=== PATIENT | female | born 1985 | race Caucasian/White ===

== ENCOUNTER 2023-03-29 05:01 | Emergency (ER) | payer BC, SELFPAY ==
--- NOTE | 2023-03-29 05:00 | DI.CT_ITS ---
Exam(s) CT ABDOMEN PELVIS WO EXAM: CT ABDOMEN PELVIS WO CLINICAL HISTORY: left flank pain, r/o stone. TECHNIQUE: Imaging Protocol: Axial computed tomography images with coronal and sagittal reformatted images were created and reviewed. COMPARISON: No exams were available for comparison FINDINGS: ABDOMEN: Lung Bases: Normal where visualized. Liver: Normal density. No measurable mass. Gallbladder and biliary tract: No radiodense calculus or biliary ductal dilation. Pancreas: Normal density, no abnormal calcifications or inflammatory process. Spleen: Normal. Kidneys: Normal size, contour and axis.There is a 4 mm stone at the ureteral vesicular junction causi ng mild hydronephrosis. No masses seen. Adrenal glands: No mass is seen. Lymph nodes: Within normal limits. Abdominal Aorta: Abdominal portion non-dilated. PELVIS: Bladder:Symmetric distention, no gross wall thickening. Bowel: No obstruction or bowel wall thickening. Appendix is unremarkable. Peritoneal cavity: No ascites, collection or mesenteric inflammatory response. No free air. Reproductive organs: Unremarkable as visualized. Bones: Within normal limits. Soft Tissues: Within normal limits. IMPRESSION: There is a 4 mm stone in the distal left ureter causing mild left hydronephrosis. RADIATION DOSE DELIVERED: Total DLP DATA REPOSITORY: All CT scans at this facility are submitted to the National Radiology Data Registry (NRDR) Dose Index Registry (DIR) with the [employer] (ACR). RADIATION OPTIMIZATION: All CT scans at this facility use at least one of these dose optimization te chniques: automated exposure control; mA and/or kV adjustment per patient size (includes targeted exa ms where dose is matched to clinical indication); or iterative reconstruction.
[2023-03-29 05:03] VITALS: PULSE 80; RESP 14; TEMP 36.9; O2SAT 98
[2023-03-29 05:07] VITALS: PULSE 78; RESP 12; O2SAT 99
--- NOTE | 2023-03-29 05:12 | W.ED.GENAD ---
Discharge Plan Disposition Patient Disposition: Home Discharge Details Clinical Impression: Kidney stone on left side ED Provider: Umesh Quinones Home Meds and New Rx's Prescriptions: New ketorolac 10 mg tablet 10 mg PO TID 5 Days Qty: 15 0RF tamsulosin [Flomax] 0.4 mg capsule 0.4 mg PO DAILY Qty: 10 0RF cephalexin 500 mg capsule 500 mg PO QID 7 Days Qty: 28 0RF Discharge Instructions Instructions: Kidney Stones (ED) Additional Instructions: At this time you have evidence of a kidney stone. Please use the urine strainer to collect the stone for further analysis. Please take Tylenol and Toradol as directed. Drink plenty of fluid. Please take the Flomax as prescribed. If you notice any worsening of your symptoms, or any new symptoms such as vomiting, diarrhea, fever, chills, shortness of breath, chest pain, numbness, weakness, or fainting , please return immediately to the emergency department for reevaluation. Please follow up with your primary care provider as soon as possible for reassessment and reevaluation. As always, it was a pleasure participating in your medical care today. We have placed a referral for you with a new primary care provider. They will contact you with the appointment time. Medical Decision Making 37-year-old female with a past medical history of previous kidney stones as well as urinary tract infections presents today for left flank pain. Patient states that about 45 minutes ago she woke up out of sleep with pain in her left flank which was notable. It radiates slightly anteriorly. She admits to associated urinary frequency. She denies any hematuria or burning. She denies any fever or chills. No vomiting or diarrhea. She states that this feels similar to her previous kidney stones and UTIs. She denies any chest pain or shortness of breath. She denies any vaginal discharge. No prior abdominal surgeries. No other complaints at this time. She has not taken any medications prior to arrival. She does not have an established PCP here at this time. Patient recently moved to the area 1 year ago from [place]. Exam demonstrates well-appearing female, vital signs stable. No abdominal or CVA tenderness. No the patient's history of kidney stones and UTIs, I do feel that imaging is indicated for further evaluation of potential stone. We will get a UA to check for infection, we will treat the patient's pain with Toradol. She does not want any other medications at this time. Will monitor closely and reassess. Differential also includes diverticulitis, less likely ovarian symptomatology. 6:58 AM Laboratory work-up demonstrates no white count bandemia or left shift. Normal renal function. Urinalysis shows large blood, trivial leuk esterase, greater than 50 RBCs, and within normal limits WBCs. No nitrites. CT scan on my review shows evidence of a distal kidney stone. Patient is feeling well. Pending CT scan read. Patient will be signed out to my colleague Dr. Garay for follow-up on CT imaging read. Otherwise patient appears well and is stable for discharge pending otherwise normal CT scan. 7:[address] scan shows evidence of a 4 mm stone. No fat stranding around the kidneys themselves. Symptoms inconsistent with pyelonephritis or significant infection. Out of an abundance of precaution we will start the patient on an antibiotic to prevent infection although there is no current evidence of significant UTI. I have extensively reviewed the treatment plan and discharge instructions with the patient. I have addressed all patient concerns at this time. The patient was made aware of what symptoms to monitor for that would warrant a return to the emergency department. Discussed the plan with the patient, they demonstrate verbal understanding and agreement with our assessment and plan at this time. The documentation in this chart was dictated using [employer] dictation software. Please excuse any dictation errors. FINDINGS: Liver: Normal. No mass. Gallbladder and bile ducts: Normal. No calcified stones. No ductal dilation. Pancreas: Normal. No ductal dilation. Spleen: Normal. No splenomegaly. Adrenal glands: Normal. No mass. Kidneys and ureters: There is a 4mm stone in the distal left ureter, with associated left-sided hydronephrosis and hydroureter. Stomach and bowel: Unremarkable. No obstruction. No mucosal thickening. Appendix: No evidence of appendicitis. Intraperitoneal space: See Lymph nodes finding. Vasculature: Unremarkable. No abdominal aortic aneurysm. Lymph nodes: Mild mesenteric fat stranding within the central abdomen, with prominent mesenteric lymph nodes. 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 Urinary bladder: Unremarkable as visualized. Reproductive: Unremarkable as visualized. Bones/joints: Unremarkable. No acute fracture. Soft tissues: Unremarkable IMPRESSION: There is a 4mm stone in the distal left ureter, with associated left-sided hydronephrosis and hydroureter. Thank you for allowing us to participate in the care of your patient. Dictated and Authenticated by: Higinio Purdy MD 03/29/2023 7:16 AM Eastern Time ([place] & [place] HPI General Date/Time Provider Initiated Documentation: 03/29/23 05:04. HPI Narrative: 37-year-old female with a past medical history of previous kidney stones as well as urinary tract infections presents today for left flank pain. Patient states that about 45 minutes ago she woke up out of sleep with pain in her left flank which was notable. It radiates slightly anteriorly. She admits to associated urinary frequency. She denies any hematuria or burning. She denies any fever or chills. No vomiting or diarrhea. She states that this feels similar to her previous kidney stones and UTIs. She denies any chest pain or shortness of breath. She denies any vaginal discharge. No prior abdominal surgeries. No other complaints at this time. She has not taken any medications prior to arrival. She does not have an established PCP here at this time. Patient recently moved to the area 1 year ago from [place]. Related Data Home Medications Medication Instructions Recorded Confirmed cephalexin 500 mg capsule 500 mg PO QID 7 days #28 caps 03/29/23 ketorolac 10 mg tablet 10 mg PO TID 5 days #15 tabs 03/29/23 tamsulosin 0.4 mg capsule (Flomax) 0.4 mg PO DAILY #10 caps 03/29/23 Previous Rx's Medication Instructions Recorded cephalexin 500 mg capsule 500 mg PO QID 7 days #28 caps 03/29/23 ketorolac 10 mg tablet 10 mg PO TID 5 days #15 tabs 03/29/23 tamsulosin 0.4 mg capsule (Flomax) 0.4 mg PO DAILY #10 caps 03/29/23 Allergies Allergy/AdvReac Type Severity Reaction Status Date / Time No Known Allergies Allergy Unverified 03/29/23 05:39 General Stated Complaint: FlankPain JASON: 3 Review of Systems All systems reviewed & are unremarkable except as noted in HPI and below PFSH All Active Problems (Updated 03/29/23 @ 07:00 by Umesh Quinones DO) Kidney stone on left side (Acute) Social History Smoking/Tobacco Use Status: Never Smoking risk assessment performed?: Yes Alcohol Intake: current Alcohol Intake frequency: a few times a month Drug use: Occasionally Substance use type: marijuana Do you feel safe at home: Yes Do you feel safe in your relationship?: Yes Exam Narrative Exam Narrative: 1.Const: Well-nourished, Well-developed, appearing stated age 2.Eyes: PERRL, no conjunctival injection, and symmetrical lids. 3.ENT: Atraumatic external nose and ears. Moist MM. Neck: Symmetric, trachea midline, No thyromegaly. 4.CVS: +S1/S2, No murmurs or gallops. Peripheral pulses 2+ and equal in all extremities. Brisk capillary refill in all extremities. 5.RESP: Unlabored respiratory effort. Clear to auscultation bilaterally. No wheezes rales or rhonchi 6.GI: Soft, Nontender/Nondistended, No hepatosplenomegaly. No guarding or rebound. No CVA tenderness. No pain or McBurney's point. Negative Rahman sign. 7.MSK: Normocephalic/Atraumatic, Extremities w/o deformity or ttp No cyanosis or clubbing, Normal movement of all extremities 8.Skin: Warm, Dry. No rashes or lesions. 9.Neuro: office support specialist II-XII grossly intact. Sensation grossly intact, no focal neurologic deficits. 10.Psych: (AAO) x3. Appropriate mood and affect Course Vital Signs Vital signs: Vital Signs Temperature 36.9 C 03/29/23 05:03 Pulse 80 03/29/23 05:03 Respiratory Rate 14 03/29/23 05:03 Pulse Oximetry 98 03/29/23 05:03 Temperature 36.9 C 03/29/23 05:03 Temperature Source Oral 03/29/23 05:03 Pulse 78 03/29/23 05:07 Respiratory Rate 12 03/29/23 05:07 Respiratory Effort Normal 03/29/23 05:07 Blood Pressure Position Sitting 03/29/23 05:03 Pulse Oximetry 99 03/29/23 05:07 Oxygen Delivery Method Room Air 03/29/23 05:07 Oxygen Flow Rate 0 03/29/23 05:03 Pain Level 4 03/29/23 05:07
[2023-03-29 05:23] LABS: Abs Immature Grans 0.01 10^3/uL (0.0-0.06); Absolute Basophil Count 0.06 10^3/uL (0.0-0.2); Absolute Eosinophil Count 0.23 10^3/uL (0.0-0.7); Absolute Monocyte Count 0.65 10^3/uL (0.1-0.8); Basophils % 0.8; HCT 40.3 % (36.0-46.0); HGB 13.5 g/dL (11.2-15.7); Immature Grans % 0.1; Lymphocytes % 39.7; MCH 29.3 pg (27.0-33.0); MCHC 33.5 % (32.0-36.0); MCV 88 fL (80-95); MPV 10.1 fL (8.0-11.0); Monocytes % 8.6; Neutrophils % 47.8; Platelet Count 347 10^3/uL (130-400); RDW 12.1 % (11.7-14.6); RDW-SD 38.7 fL; WBC 7.55 10^3/uL (4.4-10.8)
[2023-03-29 05:39] LABS: ALT 29 U/L (14-59); AST 17 U/L (15-37); Albumin 3.9 g/dL (3.4-5.0); Alkaline Phosphatase 98 U/L (46-116); Anion Gap 9.4 mmol/L (3-11); BUN 11 mg/dL (7-18); Bilirubin, Total 0.2 mg/dL (0.2-1.0); CO2 27.6 mmol/L (21.0-32.0); CREATININE 0.7 mg/dL (0.55-1.02); Calcium 8.7 mg/dL (8.5-10.1); Chloride 101 mmol/L (98-107); Estimated GFR 112.75 (mL/min/1.73m2); Glucose 99 mg/dL (74-106); Potassium 4.2 mmol/L (3.5-5.1); Sodium 138 mmol/L (136-145); Total Protein 7.9 g/dL (6.4-8.2)
[2023-03-29 05:42] LABS: Bilirubin Negative (Negative); Blood Large (Negative); Clarity Sl Cloudy (Clear); Glucose Negative (Negative); Ketones Negative (Negative); Leukocyte Esterase Trace (Negative); Nitrite Negative (Negative); Urobilinogen 0.2 mg/dL (Up to 0.2); pH 5.5 (5-8)
[2023-03-29 05:49] LABS: Bacteria Moderate HPF (Negative); Crystals Negative HPF (Negative); Epithelial Cells Moderate HPF (Negative); RBC >50 HPF (0-2)
[2023-03-29 05:50] LABS: C & S Indicated? No/Sq. Contamination; Mucus Trace (Negative)
[2023-03-29] MEDS: Ketorolac 15 MG/ML VIAL IVP (06:03)
[2023-03-29] MEDS: Tamsulosin 0.4 MG CAPCR PO (06:04)
[2023-03-29] MEDS: Normal Saline 1,000 ML 1000 ML IV (06:04)
--- NOTE | 2023-03-29 07:17 | DI.VRAD_ITS ---
PROCEDURE INFORMATION: Exam: CT Abdomen And Pelvis Without Contrast Exam date and time: 03/29/2023 5:56 AM Age: 37 years old Clinical indication: Abdominal pain; Patient HX: Left flank pain, R/O kidney stone TECHNIQUE: Imaging protocol: Computed tomography of the abdomen and pelvis without contrast. COMPARISON: No relevant prior studies available. FINDINGS: Liver: Normal. No mass. Gallbladder and bile ducts: Normal. No calcified stones. No ductal dilation. Pancreas: Normal. No ductal dilation. Spleen: Normal. No splenomegaly. Adrenal glands: Normal. No mass. Kidneys and ureters: There is a 4mm stone in the distal left ureter, with associated left-sided hydronephrosis and hydroureter. Stomach and bowel: Unremarkable. No obstruction. No mucosal thickening. Appendix: No evidence of appendicitis. Intraperitoneal space: See Lymph nodes finding. Vasculature: Unremarkable. No abdominal aortic aneurysm. Lymph nodes: Mild mesenteric fat stranding within the central abdomen, with prominent mesenteric lymph nodes. 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 Urinary bladder: Unremarkable as visualized. Reproductive: Unremarkable as visualized. Bones/joints: Unremarkable. No acute fracture. Soft tissues: Unremarkable. IMPRESSION: There is a 4mm stone in the distal left ureter, with associated left-sided hydronephrosis and hydroureter. Dictated and Authenticated by: Higinio Purdy MD. Ordering:OMAR Calvo MD
[2023-03-29] MEDS: Cephalexin 500 MG CAP, 4 CAPS/BTL PO (07:28)
[2023-03-29 07:32] VITALS: BP 124/76; PULSE 78; RESP 16; TEMP 36.8; O2SAT 98
== END 2023-03-29 07:41 | disposition home or self-care (01) ==
LOC: ER 09:29
PROVIDERS: Emergency Provider Student in an Organized Health Care Education/Training Program
DX: N13.2 Hydronephrosis with renal and ureteral calculous obstruction (principal)
CPT/HCPCS: 36415; 80053; 81025; 96361; 96374; 99284; 74176; 81003; 81015; 85025; J1885

== ENCOUNTER 2025-03-18 13:07 | Emergency (ER) | payer BC, SELFPAY ==
[2025-03-18 13:14] VITALS: BP 166/94; PULSE 73; RESP 15; TEMP 37.2; O2SAT 95
--- NOTE | 2025-03-18 13:15 | RT.EKG_ITS ---
APPROVED REPORT Exam: Resting ECG Reason for Exam: Lightheadedness Patient Location: E HR:63 bpm ECG Measurements Heart Rate 63 AXIS UT 166 P 38 QRSd 76 QRS 44 QT 395 T 47 QTc 406 Conclusion Sinus rhythm...normal P axis, V-rate 60- 99 ST elev, probable normal early repol pattern...ST elevation, age<55 Physician: no stemi
--- NOTE | 2025-03-18 13:36 | ED.GENADUL_ITS ---
Discharge Plan Disposition Patient Disposition: Home Condition: Stable Discharge Details Clinical Impression: Neck and shoulder pain Primary Care Provider: Unknown,Unknown ED Provider: Penny Allison Home Meds and New Rx's Prescriptions: No Action propranolol 10 mg tablet 10 mg PO DAILY PRN ibuprofen [Advil] 200 mg tablet 400 mg PO Q8H PRN Discharge Instructions Instructions: Neck Pain Exercises, Neck Pain ED Additional Instructions: At this time cardiac workup is negative. No evidence of pneumonia or abnormality on the chest x-ray. Follow up with primary care provider in 3-5 days. Return to ED sooner if any worsening or concerns. Please take Tylenol or Ibuprofen with food every 4-6 hours as needed for pain and swelling. Referrals: Primary Care Provider [Outside] - 5 days Referral Note: ER follow-up, call for an appointment HPI General Mode of arrival: ambulatory . Date/Time Provider Initiated Documentation: 03/18/25 13:21 . Limitations to Documentation: no limitations . Information obtained by: patient, RN notes reviewed and old records reviewed . HPI Narrative: 39-year-old female presents to the ER with a chief complaint of left-sided neck pain which radiates into her left shoulder she also reports episodes of feeling woozy and jaw pain while hiking over the last week. Prior to this she did have a headache with nausea lightheadedness. She was instructed by her PCP to present to the ER to rule out cardiac nature. Does have a past medical history of anxiety. She reports that she has a father who had a OR at the age of 60. She is a non-smoker denies any drugs or alcohol. Is not on any control at this time. Related Data Home Medications ?Medication ?Instructions ?Recorded ?Confirmed ibuprofen 200 mg tablet (Advil) 400 mg PO Q8H PRN 02/0203/18/25 propranolol 10 mg tablet 10 mg PO DAILY PRN 03/18/25 03/18/25 Allergies Allergy/AdvReac Type Severity Reaction Status Date / Time Iodinated Contrast Media Allergy Mild Other (See Verified 03/18/25 13:19 Comment) General Stated Complaint: Dizzy/Sync JASON: 3 Review of Systems All systems reviewed & are unremarkable except as noted in HPI and below Cardiovascular Cardiovascular: Reports as per HPI, Reports lightheadedness and Reports radiating jaw, neck or arm pain Exam Narrative Exam Narrative: Constitutional: Alert and oriented x3. Appears stated age. Normal body habitus. Head: Normocephalic, no trauma. Eyes: Pupils PERRL, Red reflex noted, EOM's intact. Eyelids symmetrical without lesions, discharge, or swelling. ENT: Bilateral TM's WNL, External ear normal to inspection, no mastoid TTP, swelling, or erythema, Nasal turbinates WNL, no nasal discharge. Normal dentition, Posterior pharynx WNL, no exudate. Chest: RRR, Normal S1, S2, distal pulses intact. Resp: Lungs clear to auscultation bilaterally, no wheezes, rales, or rhonchi. Abdomen: Soft, non-distended, Normoactive bowel sounds all 4 quads. Musculoskeletal: Normal gait, Moves all 4 extremities without difficulty. Skin: No suspicious rashes or lesions. Capillary refill less than 2 sec. Neurologic: Cranial nerves II-XII intact. Alert and oriented x 3. Motor: No deficits noted. Sensory: Intact bilaterally all 4 extremities. Hematologic/Lymphatic: No ecchymosis, no lymphadenopathy. Course Vital Signs Vital signs: Vital Signs Temperature 37.2 C 03/18/25 13:14 Pulse 73 03/18/25 13:14 Respiratory Rate 15 03/18/25 13:14 Blood Pressure 166/94 H 03/18/25 13:14 Pulse Oximetry 95 03/18/25 13:14 Temperature 37.2 C 03/18/25 13:14 Temperature Source Temporal Artery Scan 03/18/25 13:14 Pulse 73 03/18/25 13:14 Respiratory Rate 15 03/18/25 13:14 Blood Pressure 166/94 H 03/18/25 13:14 Blood Pressure Position Sitting 03/18/25 13:14 Pulse Oximetry 95 03/18/25 13:14 Oxygen Delivery Method Room Air 03/18/25 13:14 Oxygen Flow Rate 0 03/18/25 13:14 Pain Level 2 03/18/25 13:14 Medical Decision Making 39-year-old female presents to the ER with a chief complaint of left-sided neck pain which radiates into her left shoulder she also reports episodes of feeling woozy and jaw pain while hiking over the last week. Prior to this she did have a headache with nausea lightheadedness. She was instructed by her PCP to present to the ER to rule out cardiac nature. Does have a past medical history of anxiety. She reports that she has a father who had a OR at the age of 60. She is a non-smoker denies any drugs or alcohol. Is not on any control at this time. Cardiac workup ordered including CXR. Workup is within normal limits, no leukocytosis CMP largely within normal limits D-dimer within normal limits. Initial troponin less than 4. Chest x-ray shows no acute bony cardiopulmonary abnormality. Discussed workup results with patient verbalized understanding. This text was generated using [employer] system, please disregard any oddities of phrase or misspellings. Lab Data Lab results reviewed: Yes I reviewed the patient's lab results. Labs: Laboratory Tests Range/Units 03/18/25 03/18/25 03/18/25 13:56 14:35 16:35 WBC (4.4-10.8) 10^3/uL 7.49 RBC (3.93-5.22) 10^6/uL 4.65 Hgb (11.2-15.7) g/dL 13.7 Hct (36.0-46.0) % 40.4 MCV (80-95) fL 87 MCH (27.0-33.0) pg 29.5 MCHC (32.0-36.0) % 33.9 RDW (11.7-14.6) % 11.9 Plt Count (130-400) 10^3/uL 395 MPV (8.0-11.0) fL 10.4 Immature Gran % % 0.3 Neutrophils % % 62.9 Lymphocytes % % 26.4 Monocytes % % 7.6 Eosinophils % % 1.9 Basophils % % 0.9 Nucleated RBC % (0.0-0.3) % 0.0 Absolute Neutrophils (1.2-6.7) 10^3/uL 4.71 Absolute Lymphocytes (1.2-3.4) 10^3/uL 1.98 Absolute Monocytes (0.1-0.8) 10^3/uL 0.57 Absolute Eosinophils (0.0-0.7) 10^3/uL 0.14 Absolute Basophils (0.0-0.2) 10^3/uL 0.07 D-Dimer (<500) ng/mlFEU 338 Sodium (136-145) mmol/L 136 Potassium (3.5-5.1) mmol/L 4.2 Chloride (98-107) mmol/L 102 Carbon Dioxide (21.0-32.0) mmol/L 25.7 Anion Gap (3-11) mmol/L 8.3 BUN (7-18) mg/dL 9 Creatinine (0.55-1.02) mg/dL 0.8 Est GFR (CKD-EPI 2020) (mL/min/1.73m2) 94.87 Glucose (74-106) mg/dL 103 Calcium (8.5-10.1) mg/dL 8.5 Magnesium (1.8-2.4) mg/dL 2.0 Total Bilirubin (0.2-1.0) mg/dL 0.3 AST (15-37) U/L 13 L ALT (14-59) U/L 29 Alkaline Phosphatase (46-116) U/L 100 Troponin I (<or=51) ng/L < 4 Cancelled Cancelled Total Protein (6.4-8.2) g/dL 7.7 Albumin (3.4-5.0) g/dL 4.0 PFSH All Active Problems (Updated 03/18/25 @ 15:05 by Penny Allison NP) Neck and shoulder pain (Acute) Social History Smoking/Tobacco Use Status: Never Smoking risk assessment performed?: Yes Alcohol Intake: current Alcohol Intake frequency: a few times a month Drug use: Occasionally Substance use type: marijuana Housing: house Do you feel safe at home: Yes Do you feel safe in your relationship?: Yes PAWSS Have you Been Recently Intoxicated or Drunk Within the Last 30 days?: No Have you Ever Experienced Previous Episodes of Alcohol Withdrawal?: No Have you ever Experienced Withdrawal Seizures?: No Have you ever Experienced Delirium Tremens(DT)s?: No Have you ever undergone Alcohol Rehabilitation Treatment (i.e, inpt ot outpatient treatment programs)?: No Have you ever Experienced Blackouts?: No Have you ever Combined Alcohol with other Downers within the last 90 days?: No Have you ever Combined Alcohol with any other Substance of Abuse during the last 90 days?: No Result: 0
[2025-03-18] MEDS: Aspirin 81 MG CHEW 324 MG CH (13:48)
[2025-03-18 14:00] VITALS: RESP 20
[2025-03-18 14:15] LABS: Abs Immature Grans 0.02 10^3/uL (0.0-0.06); HCT 40.4 % (36.0-46.0); HGB 13.7 g/dL (11.2-15.7); Immature Grans % 0.3 %; MCH 29.5 pg (27.0-33.0); MCHC 33.9 % (32.0-36.0); MCV 87 fL (80-95); MPV 10.4 fL (8.0-11.0); Platelet Count 395 10^3/uL (130-400); RBC 4.65 10^6/uL (3.93-5.22); RDW 11.9 % (11.7-14.6); RDW-SD 37.8 fL; WBC 7.49 10^3/uL (4.4-10.8)
--- NOTE | 2025-03-18 14:25 | DI.RAD_ITS ---
Exam(s) XR CHEST 2V PA LATERAL EXAM: XR CHEST 2V PA LATERAL CLINICAL HISTORY: Chest pain TECHNIQUE: 2D digital imaging was performed of the chest. Two images were obtained. PA and lateral views were obtained. COMPARISON: No exams were available for comparison FINDINGS: MEDIASTINUM: Normal. HEART: Normal. PULMONARY VASCULATURE: Normal. LUNGS: Clear. PLEURAL SPACE: No pleural effusion or pneumothorax. BONE:Within normal limits for the patient's age. OTHER FINDINGS:Normal. IMPRESSION: No acute pulmonary findings. DATA REPOSITORY: RADIATION DOSE DELIVERED:
[2025-03-18 14:32] LABS: ALT 29 U/L (14-59); AST 13 U/L (15-37); Albumin 4.0 g/dL (3.4-5.0); Alkaline Phosphatase 100 U/L (46-116); Anion Gap 8.3 mmol/L (3-11); BUN 9 mg/dL (7-18); Bilirubin, Total 0.3 mg/dL (0.2-1.0); CO2 25.7 mmol/L (21.0-32.0); Calcium 8.5 mg/dL (8.5-10.1); Chloride 102 mmol/L (98-107); Estimated GFR 94.87 (mL/min/1.73m2); Glucose 103 mg/dL (74-106); Magnesium 2.0 mg/dL (1.8-2.4); Potassium 4.2 mmol/L (3.5-5.1); Sodium 136 mmol/L (136-145); Total Protein 7.7 g/dL (6.4-8.2)
[2025-03-18 14:35] LABS: Troponin I < 4 ng/L (<or=51)
[2025-03-18 14:42] LABS: D-Dimer 338 ng/mlFEU (<500)
[2025-03-18 15:28] VITALS: RESP 20
== END 2025-03-18 15:29 | disposition home or self-care (01) ==
PROVIDERS: Emergency Provider Registered Nurse Emergency
DX: M54.2 Cervicalgia (principal); M25.512 Pain in left shoulder
CPT/HCPCS: 99283; 99284; 36415; 80053; 93005; 71046; 83735; 84484; 85025; 85379; 93010